=== PATIENT | female | born 1930 | race Caucasian/White ===

== ENCOUNTER 2017-01-14 12:09 | Inpatient (IN) | payer OTHER ==
[~2017-01-14] VITALS: Ht 172.7 cm; Wt 52.0 kg
[~2017-01-14 12:09] MED LIST: Caltrate 600/400 PO; DETROL LA2 MG PO; DETROL2 MG; DORZOLAMIDE HCL BOTH EYES; ENALAPRIL MALEA10 MG PO; Ecotrin PO; LEXAPRO10 MG PO; LUMIGAN 0.50 DROP/2.; Norvasc PO; PENTOPAK400 MG; PRAVASTATIN SOD20 MG PO; TRENtal PO; Theragran PO; Xalatan 0.005% Ophth LEFT EYE
[2017-01-14 12:40] LABS: HEMATOCRIT 28.5 % (36.0-46.0); MCH 31.8 PG (29.0-34.0); MCHC 30.9 G/DL (30.0-36.0); MCV 102.9 FL (83-99); MEAN PLAT.VOLUME 9.6 uM^3 (9.5-12.4); PLATELET COUNT 295 K/uL (156-360); RBC DIS.WIDTH-CV 16.2 % (11.8-14.6); RED BLOOD COUNT 2.77 M/uL (3.80-5.20); WHITE BLOOD COUNT 13.8 K/uL (4.1-10.2)
[2017-01-14 12:48] LABS: CHLORIDE 112 mEq/L (99-109); POTASSIUM 3.8 mEq/L (3.7-5.4); SODIUM 144 mEq/L (136-147)
[2017-01-14 12:50] LABS: GLUCOSE 92 mg/dL (70-99)
[2017-01-14 12:51] LABS: ANION GAP 10 MEQ/L (2-14)
[2017-01-14 12:54] LABS: GFR ESTIMATE (CALCULATED) 45 mL/min/
[2017-01-14 12:55] LABS: UREA NITROGEN (BUN) 34 mg/dL (9-23)
[2017-01-14 14:24] LABS: ABSOLUTE RETICULOCYTE CT. 0.1 M/uL (0.02-0.08); IMM.RETIC FRACTION 23.3 % (3-19); RETIC HGB EQUIVALENT 36.8 (28-36); RETICULOCYTE COUNT 5.8 % (0.5-1.8)
[2017-01-14 14:34] LABS: ADD MIUA? NO; BILIRUBIN NEGATIVE; BLOOD NEGATIVE; COLOR YELLOW ((YELLOW)); GLUCOSE (STRIP) NEGATIVE; KETONES NEGATIVE; LEUKOCYTES NEGATIVE; NITRITE NEGATIVE; PROTEIN (STRIP) NEGATIVE; SPECIFIC GRAVITY 1.015 (1.000-1.030); UROBILINOGEN 0.2 MG/DL (0.2-1.0)
[2017-01-14 14:37] LABS: TOTAL BILIRUBIN 0.5 mg/dL (0.0-1.0)
[2017-01-14 14:38] LABS: ALKALINE PHOSPHATASE 98 IU/L (3-129)
[2017-01-14 14:40] LABS: DIRECT BILIRUBIN 0.2 mg/dL (0.0-0.3)
[2017-01-14 14:41] LABS: LIPASE 56 U/L (1.0-51.0)
[2017-01-14 15:05] LABS: PROTHROMBIN TIME 10.5 (9.2-11.2); PTT 26.6 (25-32)
[2017-01-14] MEDS ORDERED: ENALAPRIL MALEA20 MG PO (15:25)
[2017-01-14] MEDS ORDERED: PRAVASTATIN SOD40 MG PO (15:25)
[2017-01-14] MEDS ORDERED: LEXAPRO20 MG PO (15:25)
[2017-01-14] MEDS ORDERED: TRENTAL400 MG PO (15:29)
[2017-01-14] MEDS ORDERED: ECOTRIN325 MG PO (15:29)
[2017-01-14] MEDS ORDERED: TRUSOPT5 ML BOTH EYES (15:30)
[2017-01-14] MEDS ORDERED: NORVASC5 MG PO (15:31)
[2017-01-14] MEDS ORDERED: XALATAN2.5 ML BOTH EYES (15:31)
[2017-01-14] MEDS ORDERED: THERAGRAN1 TABLET PO (15:32)
[2017-01-14] MEDS ORDERED: CALTRATE PLUS1 EACH PO (15:32)
[2017-01-14 15:44] LABS: FERRITIN 62 NG/ML (10-291)
[2017-01-14 17:07] VITALS: BP 177/72
[2017-01-14 17:31] VITALS: BP 124/59
[2017-01-14 19:20] VITALS: BP 111/55
[2017-01-14 19:55] LABS: HEMATOCRIT 23.7 % (36.0-46.0); MCV 101.3 FL (83-99)
[2017-01-14 22:27] VITALS: BP 98/56
[2017-01-14 22:45] VITALS: BP 113/62
[2017-01-15] VITALS (9 sets, daily range): BP systolic 108–176; BP diastolic 58–87
[2017-01-15 07:52] LABS: HEMATOCRIT 33.4 % (36.0-46.0)
[2017-01-15 07:54] LABS: MCV 94.9 FL (83-99)
[2017-01-15 07:59] LABS: ALKALINE PHOSPHATASE 77 IU/L (3-129); ANION GAP 9 MEQ/L (2-14); CHLORIDE 110 MEQ/L (99-109); GFR ESTIMATE (CALCULATED) > 59 mL/min/; GLUCOSE 100 mg/dL (70-99); POTASSIUM 3.7 MEQ/L (3.7-5.4); SAMPLE HEMOLYSIS CHECK 0; SAMPLE ICTERIC CHECK 0; SAMPLE LIPEMIA CHECK 0; SODIUM 141 MEQ/L (136-147); UREA NITROGEN (BUN) 17 mg/dL (9-23)
[2017-01-15 20:10] LABS: HEMATOCRIT 39.8 % (36.0-46.0); MCV 94.5 FL (83-99)
[2017-01-16] VITALS (7 sets, daily range): BP systolic 110–135; BP diastolic 64–72
[2017-01-16 10:08] LABS: HEMATOCRIT 37.5 % (36.0-46.0); MCV 96.6 FL (83-99)
[2017-01-16 20:03] LABS: HEMATOCRIT 35.7 % (36.0-46.0); MCH 30.7 PG (29.0-34.0); MCHC 31.9 G/DL (30.0-36.0); MCV 96.2 FL (83-99); MEAN PLAT.VOLUME 9.6 uM^3 (9.5-12.4); PLATELET COUNT 255 K/uL (156-360); RBC DIS.WIDTH-CV 17.4 % (11.8-14.6); WHITE BLOOD COUNT 13.7 K/uL (4.1-10.2)
[2017-01-16 20:10] LABS: RED BLOOD COUNT 3.71 M/uL (3.80-5.20)
[2017-01-17 04:30] VITALS: BP 120/59
[2017-01-17 07:27] VITALS: BP 131/79
[2017-01-17 07:55] LABS: HEMATOCRIT 34.8 % (36.0-46.0); MCV 95.9 FL (83-99)
[2017-01-17 08:22] LABS: ANION GAP 10 MEQ/L (2-14); CHLORIDE 112 MEQ/L (99-109); GFR ESTIMATE (CALCULATED) 56 mL/min/; GLUCOSE 98 mg/dL (70-99); POTASSIUM 4.2 MEQ/L (3.7-5.4); SAMPLE HEMOLYSIS CHECK 0; SAMPLE ICTERIC CHECK 0; SAMPLE LIPEMIA CHECK 0; SODIUM 144 MEQ/L (136-147); UREA NITROGEN (BUN) 15 mg/dL (9-23)
[2017-01-17] MEDS ORDERED: PANTOPRAZOLE SO40 MG PO (11:41)
[2017-01-17 13:28] VITALS: BP 124/70
== END 2017-01-17 13:27 | disposition home or self-care (01) | DRG 377 ==
LOC: EME 12:09 → EDOF 14:53 → 4EAST 14:53
PROVIDERS: Emergency Medicine; Internal Medicine; Physician Assistant
PROC: 30233N1 Transfusion of Nonautologous Red Blood Cells into Peripheral Vein, Percutaneous Approach (ICD-10-PCS; principal; 2017-01-14)
PROC: 0DJ08ZZ Inspection of Upper Intestinal Tract, Via Natural or Artificial Opening Endoscopic (ICD-10-PCS; 2017-01-15)
DX: K25.4 Chronic or unspecified gastric ulcer with hemorrhage (principal); J96.01 Acute respiratory failure with hypoxia; D62 Acute posthemorrhagic anemia; I25.10 Atherosclerotic heart disease of native coronary artery without angina pectoris; I10 Essential (primary) hypertension; E78.5 Hyperlipidemia, unspecified; Z95.1 Presence of aortocoronary bypass graft; Z87.891 Personal history of nicotine dependence
CPT/HCPCS: 71020; 74177; 80048; 80048 91; 80053; 80076; 81003; 82607; 82728; 82746; 83690; 84466; 85014; 85018; 85027; 85045; 85610; 85730; 86850; 86900; 86901; 86920; 94799; 99281; 99285; C9113; J2405; J7030; J7050; P9016

== ENCOUNTER → 2017-02-21 | Outpatient (CLI) | payer OTHER ==
[~2017-02-21] MED LIST changes: +CALTRATE PLUS1 EACH PO; +ECOTRIN325 MG PO; +ENALAPRIL MALEA20 MG PO; +LEXAPRO20 MG PO; +NORVASC5 MG PO; +PANTOPRAZOLE SO40 MG PO; +PRAVASTATIN SOD40 MG PO; +THERAGRAN1 TABLET PO; +TRENTAL400 MG PO; +TRUSOPT5 ML BOTH EYES; +XALATAN2.5 ML BOTH EYES
[2017-02-21 15:24] LABS: TYPE OF FLUID PLEURAL
[2017-02-21 15:58] LABS: BODY FLUID LDH 82 IU/L; BODY FLUID PROTEIN < 3 G/DL
[2017-02-21 16:14] LABS: BODY FLUID RBC'S 2000 /MM^3 (0-100); BODY FLUID WBC'S 1557 /MM^3 (0-500)
[2017-02-21 16:23] LABS: BODY FLUID EOSINOPHILS 1 % (0-25); MONONUCLEAR WBC'S 21 %; POLYNUCLEAR WBC'S 78 % (0-25)
[2017-02-21 16:24] LABS: COMMENT MANY MACROPHAGES SEE
[2017-02-22 14:07] LABS: BODY FLUID PH 7.8 (())
== END | disposition home or self-care (01) ==
LOC: RAD 13:38 → EDSTATUS 14:00
PROVIDERS: Internal Medicine
PROC: 0W993ZZ Drainage of Right Pleural Cavity, Percutaneous Approach (ICD-10-PCS; principal; 2017-02-21)
DX: J90 Pleural effusion, not elsewhere classified (principal)
CPT/HCPCS: 83615 91; 83986 90; 84157; 87070; 87075; 87205; 89051